=== PATIENT | male | born 1965 | race Caucasian/White ===

== ENCOUNTER 2017-07-25 12:16 | Emergency (ER) | payer BC ==
[2017-07-25] MEDS ORDERED: Sodium Chloride 0.9% 10 ML Syringe FLUSH PRN (12:34)
--- NOTE | 2017-07-25 13:42 | EDM.PDOC ---
ED HPI GENERAL MEDICAL PROBLEM - General Chief Complaint: Cardiovascular Problem Stated Complaint: DIZZY AND HIGH BLOOD PRESSURE Time Seen by Provider: 07/25/17 12:19 Source of Information: Reports: Patient, RN Notes Reviewed - History of Present Illness INITIAL COMMENTS - FREE TEXT/NARRATIVE: 51-year-old male had 2 episodes of severe dizziness, nausea, diaphoresis this morning. 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 With some rest and time that all resolved. And not too long later he had a second episode once again on a creeper working on some wiring underneath the trailer. He does have history of vertigo. Not been having recent difficulty up until this morning. Because he did get nauseated and did get diaphoretic he felt better get things checked out. He does have history of coronary artery disease with history of previous bypass and also previous stents. He continues to have no chest pain or difficulty breathing. The vertigo now is much better. it is better to lie still, worse to be moving his head. - Related Data Allergies Allergy/AdvReac Type Severity Reaction Status Date / Time hydromorphone HCl Allergy Hives Verified 07/25/17 13:24 [From Dilaudid] Penicillins Allergy Anaphylactic Verified 07/25/17 13:24 Shock Home Meds: Home Meds Aspirin [Halfprin] 81 mg PO DAILY 01/11/15 [History] Lisinopril 20 mg PO DAILY 01/11/15 [History] Metoprolol Tartrate 50 mg PO BID 01/11/15 [History] Rosuvastatin [Crestor] 40 mg PO DAILY 01/11/15 [History] Gabapentin [Neurontin] 300 mg PO ASDIRECTED 07/25/17 [History] Gabapentin [Neurontin] 900 mg PO BEDTIME 07/25/17 [History] Hydrocodone/Acetaminophen [Hydrocodon-Acetaminophn 10-325] 1 tab PO BEDTIME PRN 07/25/17 [History] Ketorolac Tromethamine 10 mg PO Q12H 07/25/17 [History] tiZANidine [Zanaflex] 4 mg PO BEDTIME 07/25/17 [History] Past Medical History Cardiovascular History: Reports: GA, Stents Other Gastrointestinal History: hernia in the abdomen - Past Surgical History Cardiovascular Surgical History: Reports: Coronary Artery Bypass Social & Family History - Tobacco Use Smoking Status *Q: Never Smoker - Caffeine Use Caffeine Use: Reports: Coffee - Recreational Drug Use Recreational Drug Use: No ED ROS GENERAL - Review of Systems Review Of Systems: See Below Constitutional: Reports: Diaphoresis (Gone). Denies: Fever, Chills HEENT: Reports: Vertigo. Denies: Ear Discharge, Ear Pain, Sinus Problem, Throat Pain Respiratory: Denies: Shortness of Breath Cardiovascular: Denies: Chest Pain GI/Abdominal: Reports: Nausea. Denies: Abdominal Pain, Diarrhea, Vomiting Musculoskeletal: Denies: Neck Pain, Shoulder Pain, Arm Pain, Back Pain Skin: Denies: Rash Neurological: Reports: Dizziness. Denies: Numbness (Gone), Tingling, Trouble Speaking, Weakness ED EXAM, GENERAL - Physical Exam Exam: See Below General Appearance: Alert, No Apparent Distress Eye Exam: Bilateral Eye: PERRL Nose: Normal Inspection Throat/Mouth: Normal Inspection Head: Atraumatic. No: Facial Swelling Neck: Supple, Full Range of Motion Respiratory/Chest: No Respiratory Distress, Lungs Clear, Normal Breath Sounds Cardiovascular: Regular Rate, Rhythm GI/Abdominal: Soft, Non-Tender Extremities: Normal Inspection. No: Pedal Edema, Leg Pain Neurological: Alert, Oriented, No Motor/Sensory Deficits Skin Exam: Warm, Dry, Normal Color EKG INTERPRETATION EKG Date: 07/25/17 Rhythm: NSR [place]: Normal P-Wave: Present QRS: Other ST-T: Other (No significant ST elevation or depression.) Course - Vital Signs Last Recorded V/S: Last Vital Signs Temp 98.1 F 07/25/17 12:22 Pulse 76 07/25/17 12:22 Resp 18 07/25/17 12:22 BP 163/103 H 07/25/17 12:22 Pulse Ox 94 L 07/25/17 12:22 - Orders/Labs/Meds Orders: Active Orders 24 hr Category Date Time Status EKG 12 Lead [EKG Documentation Completion] [RC] STAT Care 07/25/17 12:34 Active Peripheral IV Care [RC] . DIRECTED Care 07/25/17 12:35 Active Sodium Chloride 0.9% [Saline Flush] Med 07/25/17 12:34 Active 10 ml FLUSH ASDIRECTED PRN Peripheral IV Insertion Adult [OM.PC] Stat Oth 07/25/17 12:35 Ordered Medication Orders Sodium Chloride (Saline Flush) 10 ml FLUSH ASDIRECTED PRN PRN Reason: Keep Vein Open Last Admin: 07/25/17 12:57 Dose: 10 ml Labs: Laboratory Tests 07/25/17 Range/Units 12:45 Troponin I < 0.017 (0.00-0.056) ng/mL Meds: Medications Generic Name Dose Route Start Last Admin Trade Name Lynn PRN Reason Stop Dose Admin Sodium Chloride 10 ml 07/25/17 12:34 07/25/17 12:57 Saline Flush FLUSH 10 ml ASDIRECTED PRN Administration Keep Vein Open - Re-Assessments/Exams Free Text/Narrative Re-Assessment/Exam: 07/25/17 14:17 EKG did not show acute changes, no chest pain, he gives a very strong clear history that this is vertigo, inner ear disturbance. court recording monitor showed sinus rhythm, no ectopy. Troponin negative. Blood pressure was high initially but that has trended down toward much better readings from arrival. Discharge instructions as documented. Departure - Departure Time of Disposition: 13:56 Disposition: Home, Self-Care 01 Condition: Fair Clinical Impression: Labyrinthitis, acute Qualifiers: Laterality: bilateral Qualified Code(s): H83.03 - Labyrinthitis, bilateral Instructions: Labyrinthitis Referrals: PCP,None [Primary Care Provider] - Forms: ED Department Discharge, ED Return to Work/School Form Additional Instructions: Rest, move slowly and carefully, continue the meclizine and take that twice daily today and tomorrow or consider one half dose 12.5 mg in the morning if that makes you too drowsy. Return to work Tuesday as tolerated. Return to ED as needed if symptoms worsening in any way. - My Orders Last 24 Hours: My Active Orders 07/25/17 12:34 EKG 12 Lead [EKG Documentation Completion] [RC] STAT Sodium Chloride 0.9% [Saline Flush] 10 ml FLUSH ASDIRECTED PRN 07/25/17 12:35 Peripheral IV Care [RC] . DIRECTED Peripheral IV Insertion Adult [OM.PC] Stat - Assessment/Plan Last 24 Hours: My Active Orders 07/25/17 12:34 EKG 12 Lead [EKG Documentation Completion] [RC] STAT Sodium Chloride 0.9% [Saline Flush] 10 ml FLUSH ASDIRECTED PRN 07/25/17 12:35 Peripheral IV Care [RC] . DIRECTED Peripheral IV Insertion Adult [OM.PC] Stat
[2017-07-25 14:12] VITALS: BP 112/57
== END 2017-07-25 14:05 | disposition home or self-care (01) ==
LOC: JD.ED 12:16
DX: H83.03 Labyrinthitis, bilateral (principal); I25.810 Atherosclerosis of coronary artery bypass graft(s) without angina pectoris; Z88.0 Allergy status to penicillin; Z88.5 Allergy status to narcotic agent; Z79.899 Other long term (current) drug therapy; Z79.82 Long term (current) use of aspirin; Z95.1 Presence of aortocoronary bypass graft
CPT/HCPCS: 36415; 84484; 93005; 99284; J7050; 93010; 99283-25